=== PATIENT | male | born 1955 | race Caucasian/White ===

== ENCOUNTER 2016-06-15 09:42 | Outpatient (CLI) | payer MEDICARE ==
[~2016-06-15] VITALS: Ht 195.6 cm; Wt 68.6 kg
[~2016-06-15 09:42] MED LIST: BENICAR20 MG PO
[2016-06-15] MEDS ORDERED: HYDROCODONE-APA1 TAB PO (10:37)
[2016-06-15 10:38] VITALS: BP 121/84; Ht 195.6 cm; Wt 68.6 kg
--- NOTE | 2016-06-15 10:50 | NUR ---
1035 PATIENTS ASSESSMENT DONE. ALERT AND TALKATIVE. RESP NONLABORED. CONSENT SIGNED FOR BLOOD TRANSFUSION AND EXPLAINED S/S OF BL;OOD REACTIONS. ALSO EXPLAINED TIME TO GET BLOOD READY 2 TO 3 HOURS PER UNIT OF BLOOD ANS HAS TO STAY 1 HOUR POST TRANSFUSION. TOLD WILL GET TYLENOL AND BENADRYL PREVENTATIVE FOR BLOOD REACTION.ALSO EXPLAINED POST TRANSFUSION INSTRUCTIONS TO KEEP BLOOD BAND ON X 3 DAYS AFTER BLOOD IN CASE OF TRANSFUSION REACTION.
--- NOTE | 2016-06-15 11:08 | NUR ---
1110 IV STICK 20 GAUGE 1 STICK RT ARM GOOD BLOOD RETURN NO REDNESS OR SWELLING TO IV SITE.
--- NOTE | 2016-06-15 11:18 | NUR ---
1110 IV STUCK 20 GAUGE 1 STICK LEFT FOREARM GOOD BLOOD RETURN. N/S AT KVO NO REDNESS OR SWELLING. N/S WITH BLOOD TUBING AND STOPCOCK INFUSING.
--- NOTE | 2016-06-15 12:08 | NUR ---
1145 LUNCH SERVED AND ORANGE JUICE.
--- NOTE | 2016-06-15 12:09 | NUR ---
1200 1ST UNIT OF PRBCS CHECKED BY 2 R.N.S BLOOD TUBING AND PRIMED WITH N/S. BLOOD STRATED AT 75 CC/HR VIA LEFT ARM IV SITE. NO REDNESS OR SWELLING.
--- NOTE | 2016-06-15 13:32 | NUR ---
1215 BLOOD INFUSING WITHOUT S/S OF BLOOD REACTIONS NOTED. URMILA.
--- NOTE | 2016-06-15 13:32 | NUR ---
1245 NO S/S OD BLOOD REACTIONS NOTED.
--- NOTE | 2016-06-15 13:33 | NUR ---
1330 VOIDED. TOLERATING BLOOD NO S/S OF BLOOD REACTIONS NOTED.IV LEFT ARM NO REDNESS OR SWELLING.
--- NOTE | 2016-06-15 14:43 | NUR ---
1430 1ST UNIT OF PRBCS COMPLETED AND FLUSHED WITH SALINE. IV SITE LEFT ARM NO REDNESS OR SWELLING.
--- NOTE | 2016-06-15 14:44 | NUR ---
1445 2ND UNIT OF PRBC CHECKED WITH 2 RNS AND NEW BLOOD TUBING HUNG. INFUSING VIA RT ARM NO REDNESS OR SWELLING.
--- NOTE | 2016-06-15 15:10 | NUR ---
1515 BLOOD INFUSING NO S/S OF BLOOD REACTIONS NOTED.
--- NOTE | 2016-06-15 16:43 | NUR ---
1615 BLOOD 2ND UNIT INFUSING WITHOUT S/S OF BLOOD REACTIONS IV LEFT ARM NO REDNESS OR SWELLING. JUICE SERVED.
--- NOTE | 2016-06-15 17:11 | NUR ---
1710 ORDERED DINNER TRAY. IV TO LEFT ARM NO REDNESS OR SWELLING. RECEIVING BLOOD WITHOUT REACTIONS NOTED.
--- NOTE | 2016-06-15 18:55 | NUR ---
1830 IV DCD CATHETER INTACT. TOLERATED SUPPER.
--- NOTE | 2016-06-15 18:55 | NUR ---
1800 BLOOD COMPLETED AND FLUSHED WITH NORMAL SALINE. IV LEFT ARM NO REDNESS OR SWELLING. NO S/S OF BLOOD REACTIONS NOTED.
--- NOTE | 2016-06-15 19:07 | NUR ---
1900 DISCHARGED TO HOME AMBULATED.
== END 2016-06-15 19:00 | disposition home or self-care (01) ==
LOC: D.OPS 09:42
DX: C34.91 Malignant neoplasm of unspecified part of right bronchus or lung (principal); D64.9 Anemia, unspecified